=== PATIENT | female | born 1945 | race Caucasian/White ===

== ENCOUNTER 2019-12-22 15:34 | Inpatient (IN) | payer OTHER, MEDICAID ==
[~2019-12-22] VITALS: Ht 160 cm; Wt 59.9 kg
[2019-12-22 16:25] LABS: Basophils # (auto) 0.1 10 ^3/uL (0-0.2); Basophils % (auto) 0.5 % (0.0-2.0); Eosinophils # (auto) 0 10 ^3/uL (0-0.8); Eosinophils % (auto) 0.1 % (0.0-7.0); Hemoglobin 17.5 g/dL (12.2-16.2); Mean Corpuscular Hemoglobin 31.7 pg (28.0-32.0); Mean Corpuscular Hgb Conc. 33.7 g/dL (32.0-36.0); Mean Corpuscular Volume 94.3 fL (80.0-100.0); Monocytes % (auto) 7.1 % (0.0-12.0); Neutrophils # (auto) 12.1 10 ^3/uL (1.6-8.6); Neutrophils % (auto) 85.3 % (37.0-80.0); Nucleated Red Blood Cells % 0.1 %; Platelet Count (auto) 238 10^3/uL (140-450); Red Blood Cells 5.52 10^6/uL (4.0-5.20); Red Cell Distribution Width 14.4 % (11.8-14.3); White Blood Cell 14.1 10^3/uL (4.4-10.8)
[2019-12-22 16:33] LABS: INR 1.02 (0.9-1.15); Partial Thromboplastin Time 27.2 sec (23.64-32.05)
[2019-12-22 16:37] LABS: Alanine Aminotransferase 13 U/L (13-56); Albumin 3.5 g/dL (3.4-5.0); Anion Gap 10 (5-15); Aspartate Aminotransferase 16 U/L (15-37); Blood Urea Nitrogen 15 mg/dL (7-18); Calcium 8.7 mg/dL (8.5-10.1); Carbon Dioxide 18 mmol/L (21-32); Chloride 105 mmol/L (98-107); GFR African American 59 mL/min; GFR Non-African American 49 mL/min; Glucose 122 mg/dL (74-106); Potassium 3.8 mmol/L (3.5-5.1); Sodium 133 mmol/L (136-145)
[2019-12-22 16:42] LABS: Alkaline Phosphatase 66 U/L (45-117)
[2019-12-22] MEDS ORDERED: CLINDAMYCIN 600MG IV 50 ML IV ONE (17:45)
[2019-12-22] MEDS ORDERED: cefTRIAXone 1GM/50ML D5W 50 ML IV ONE (17:45)
[2019-12-22] MEDS ORDERED: SODIUM CHLORIDE 0.9% 1,000 ML IV ONE (17:45)
[2019-12-23] MEDS ORDERED: HYDROcodone-ACET 5/325MG TAB PO PRN (00:30)
[2019-12-23] MEDS ORDERED: ACETAMINOPHEN 325 MG TAB PO PRN (00:30)
[2019-12-23] MEDS ORDERED: ONDANSETRON HCL 4 MG/2 ML VIAL IV PRN (00:30)
[2019-12-23] MEDS ORDERED: ENOXAPARIN SOD 100 MG/1 ML SYRINGE SC SCH (00:30)
[2019-12-23] MEDS ORDERED: TEMAZEPAM 15 MG CAP PO PRN (00:30)
[2019-12-23 01:28] LABS: Urine Bacteria FEW /hpf (None Seen); Urine Blood Negative /uL (Negative); Urine Hyaline Cast MANY /lpf (0 - 2); Urine Mucus FEW (None Seen); Urine Specific Gravity 1.017 (1.001-1.035); Urine WBC 6 /hpf (0 - 5)
[2019-12-23 01:39] LABS: BUN/Creatinine Ratio 15.9; Calcium 8.3 mg/dL (8.5-10.1)
[2019-12-23 03:00] VITALS: BP 115/68
[2019-12-23 05:07] VITALS: BP 104/65
[2019-12-23] MEDS: LEVOTHYROXINE SODIUM 25 MCG TAB PO SCH (06:40)
[2019-12-23 08:59] VITALS: BP 115/63
[2019-12-23] MEDS: MEMANTINE HCL 5 MG TAB PO SCH ×2 (09:28→21:36)
[2019-12-23] MEDS: PANTOPRAZOLE 40 MG TAB PO SCH (09:28)
[2019-12-23] MEDS ORDERED: IOHEXOL 350 MG/ML 100ML IJ ONE (11:44)
[2019-12-23] MEDS ORDERED: levoFLOXacin 500 MG TAB PO SCH (11:45)
[2019-12-23] MEDS: APIXABAN 5 MG TAB PO SCH ×2 (12:54→21:36)
[2019-12-23 13:00] VITALS: BP 114/71
[2019-12-23 13:34] LABS: Basophils # (auto) 0 10 ^3/uL (0-0.2); Basophils % (auto) 0.4 % (0.0-2.0); Eosinophils # (auto) 0.1 10 ^3/uL (0-0.8); Eosinophils % (auto) 1.3 % (0.0-7.0); Hematocrit 45.1 % (36.0-46.0); Hemoglobin 15.2 g/dL (12.2-16.2); Lymphocytes # (auto) 1.1 10 ^3/uL (0.4-5.4); Lymphocytes % (auto) 12.8 % (10.0-50.0); Mean Corpuscular Hemoglobin 31.8 pg (28.0-32.0); Mean Corpuscular Hgb Conc. 33.6 g/dL (32.0-36.0); Mean Corpuscular Volume 94.6 fL (80.0-100.0); Monocytes # (auto) 0.5 10 ^3/uL (0-1.3); Monocytes % (auto) 6.2 % (0.0-12.0); Neutrophils # (auto) 6.9 10 ^3/uL (1.6-8.6); Neutrophils % (auto) 79.3 % (37.0-80.0); Platelet Count (auto) 212 10^3/uL (140-450); Red Blood Cells 4.76 10^6/uL (4.0-5.20); Red Cell Distribution Width 14.3 % (11.8-14.3); White Blood Cell 8.7 10^3/uL (4.4-10.8)
[2019-12-23] MEDS: CEPHALEXIN 250 MG CAP PO SCH ×2 (15:41→21:36)
[2019-12-23] MEDS ORDERED: LEVO25TA6 PO (16:05)
[2019-12-23] MEDS ORDERED: MEMA1TAB3 PO (16:09)
[2019-12-23 16:48] VITALS: BP 111/69
[2019-12-23 22:00] VITALS: BP 127/66
[2019-12-24 05:00] VITALS: BP 115/67
[2019-12-24] MEDS: CEPHALEXIN 250 MG CAP PO SCH ×2 (06:04→14:13)
[2019-12-24] MEDS: LEVOTHYROXINE SODIUM 25 MCG TAB PO SCH (06:04)
[2019-12-24 06:20] LABS: Basophils # (auto) 0.1 10 ^3/uL (0-0.2); Basophils % (auto) 0.6 % (0.0-2.0); Eosinophils # (auto) 0.2 10 ^3/uL (0-0.8); Eosinophils % (auto) 2.1 % (0.0-7.0); Hematocrit 42.7 % (36.0-46.0); Hemoglobin 14.6 g/dL (12.2-16.2); Lymphocytes % (auto) 11.7 % (10.0-50.0); Mean Corpuscular Hemoglobin 31.5 pg (28.0-32.0); Mean Corpuscular Hgb Conc. 34.1 g/dL (32.0-36.0); Mean Corpuscular Volume 92.4 fL (80.0-100.0); Monocytes # (auto) 0.8 10 ^3/uL (0-1.3); Neutrophils # (auto) 6.7 10 ^3/uL (1.6-8.6); Neutrophils % (auto) 76.6 % (37.0-80.0); Nucleated Red Blood Cells % 0.1 %; Platelet Count (auto) 219 10^3/uL (140-450); Red Blood Cells 4.62 10^6/uL (4.0-5.20); Red Cell Distribution Width 13.9 % (11.8-14.3); White Blood Cell 8.8 10^3/uL (4.4-10.8)
[2019-12-24 06:35] LABS: INR 1.11 (0.9-1.15); Partial Thromboplastin Time 35.8 sec (23.64-32.05)
[2019-12-24 06:43] LABS: Potassium 3.7 mmol/L (3.5-5.1)
[2019-12-24 06:50] LABS: BUN/Creatinine Ratio 14.3; Calcium 8.3 mg/dL (8.5-10.1)
[2019-12-24] MEDS: MEMANTINE HCL 5 MG TAB PO SCH (10:08)
[2019-12-24] MEDS: APIXABAN 5 MG TAB PO SCH (10:08)
[2019-12-24] MEDS: PANTOPRAZOLE 40 MG TAB PO SCH (10:09)
[2019-12-30] MEDS ORDERED: APIXABAN 5 MG TAB PO SCH (22:00)
== END 2019-12-24 15:00 | disposition home or self-care (01) | DRG 300 ==
LOC: ER 15:34 → EDBD 15:34 → OVERFLOW 15:35 → WEST WING 12-23 03:41
PROVIDERS: ADMIT Nurse Practitioner; ATTEND Internal Medicine
DX: I82.412 Acute embolism and thrombosis of left femoral vein (principal); L03.116 Cellulitis of left lower limb; I82.432 Acute embolism and thrombosis of left popliteal vein; D72.829 Elevated white blood cell count, unspecified; E86.0 Dehydration; E03.9 Hypothyroidism, unspecified; R00.0 Tachycardia, unspecified; E11.9 Type 2 diabetes mellitus without complications; E78.5 Hyperlipidemia, unspecified; F03.90 Unspecified dementia, unspecified severity, without behavioral disturbance, psychotic disturbance, mood disturbance, and anxiety; I10 Essential (primary) hypertension; Z79.01 Long term (current) use of anticoagulants; Z90.49 Acquired absence of other specified parts of digestive tract; Z88.5 Allergy status to narcotic agent; R91.1 Solitary pulmonary nodule
CPT/HCPCS: 36415; 71046; 71275; 80048; 80053; 81001; 83036; 83605; 84443; 84484; 85025; 85379; 85610; 85730; 87040; 93005; 93971; G0378; J0696; J3490

== ENCOUNTER 2020-01-26 12:53 | Emergency (ER) | payer OTHER, MEDICAID ==
[~2020-01-26] VITALS: Ht 160 cm; Wt 65.8 kg
[~2020-01-26 12:53] MED LIST: LEVO25TA6 PO; MEMA1TAB3 PO
[2020-01-26 13:13] VITALS: BP 135/86
[2020-01-26] MEDS ORDERED: ENOXAPARIN SOD 100 MG/1 ML SYRINGE SC ONE (14:45)
== END 2020-01-26 15:29 | disposition home or self-care (01) ==
LOC: ER 12:53
DX: I82.502 Chronic embolism and thrombosis of unspecified deep veins of left lower extremity (principal); J44.9 Chronic obstructive pulmonary disease, unspecified; E11.9 Type 2 diabetes mellitus without complications; E78.5 Hyperlipidemia, unspecified
CPT/HCPCS: 93971; 96372; 99284; J1650

== ENCOUNTER 2020-11-25 16:17 | Emergency (ER) | payer OTHER, MEDICAID ==
[~2020-11-25] VITALS: Ht 167.6 cm; Wt 63.5 kg
[2020-11-25] MEDS ORDERED: SODIUM CHLORIDE 0.9% 1,000 ML IV ONE (17:15)
[2020-11-25 17:20] LABS: Basophils # (auto) 0 10 ^3/uL (0-0.2); Basophils % (auto) 0.3 % (0.0-2.0); Eosinophils # (auto) 0.1 10 ^3/uL (0-0.8); Eosinophils % (auto) 1.3 % (0.0-7.0); Hematocrit 47.8 % (36.0-46.0); Hemoglobin 16.5 g/dL (12.2-16.2); Lymphocytes # (auto) 1.7 10 ^3/uL (0.4-5.4); Lymphocytes % (auto) 19.9 % (10.0-50.0); Mean Corpuscular Hemoglobin 32.4 pg (28.0-32.0); Mean Corpuscular Hgb Conc. 34.6 g/dL (32.0-36.0); Mean Corpuscular Volume 93.7 fL (80.0-100.0); Monocytes # (auto) 0.5 10 ^3/uL (0-1.3); Monocytes % (auto) 5.7 % (0.0-12.0); Neutrophils # (auto) 6.1 10 ^3/uL (1.6-8.6); Neutrophils % (auto) 72.8 % (37.0-80.0); Nucleated Red Blood Cells % 0.1 %; Red Blood Cells 5.09 10^6/uL (4.0-5.20); Red Cell Distribution Width 15.1 % (11.8-14.3); White Blood Cell 8.4 10^3/uL (4.4-10.8)
[2020-11-25 17:39] LABS: Urine Bacteria NONE SEEN /hpf (None Seen); Urine Blood Negative /uL (Negative); Urine Specific Gravity 1.003 (1.001-1.035); Urine WBC <1 /hpf (0 - 5)
[2020-11-25 17:41] LABS: Albumin 3.6 g/dL (3.4-5.0); Calcium 8.9 mg/dL (8.5-10.1); Potassium 3.7 mmol/L (3.5-5.1)
[2020-11-25 17:44] LABS: BUN/Creatinine Ratio 10.9; Magnesium 2.5 mg/dL (1.6-2.6)
[2020-11-25 17:47] LABS: Bilirubin, Total 0.9 mg/dL (0.2-1.0); Total Protein 6.9 g/dL (6.4-8.2)
[2020-11-25] MEDS ORDERED: LORazepam 2MG/ML-1ML VIAL IV ONE (20:15)
[2020-11-25 22:57] VITALS: BP 139/91
== END 2020-11-25 22:58 | disposition home or self-care (01) ==
LOC: EDBD 16:17 → EDUNIT# 16:17 → ER 16:17
DX: R41.82 Altered mental status, unspecified (principal); G30.9 Alzheimer's disease, unspecified; F02.80 Dementia in other diseases classified elsewhere, unspecified severity, without behavioral disturbance, psychotic disturbance, mood disturbance, and anxiety; E03.9 Hypothyroidism, unspecified; F17.210 Nicotine dependence, cigarettes, uncomplicated; J44.9 Chronic obstructive pulmonary disease, unspecified; Z88.5 Allergy status to narcotic agent; Z79.899 Other long term (current) drug therapy; Z98.890 Other specified postprocedural states; Z20.822 Contact with and (suspected) exposure to COVID-19
CPT/HCPCS: 36415; 70450; 71046; 80053; 81001; 83735; 84443; 85025; 87426; 93005; 96361; 96374; 99285; J2060